=== PATIENT | male | born 1965 | race Caucasian/White ===

== ENCOUNTER → 2016-06-29 17:18 | Outpatient (CLI) | payer MEDICAID ==
[2016-06-29 17:41] LABS: HEMATOCRIT 27.7 % (42.0-54.0); HEMOGLOBIN 9.2 g/dL (13.5-17.5); MCH 28.1 pg (26.0-34.0); MCHC 33.2 g/dL (31.0-37.0); MCV 84.7 fL (80.0-100.0); MEAN PLATELET VOLUME 10.6 fL (7.4-10.4); PLATELET COUNT 139 10x3/uL (130-400); RBC 3.27 10x6/uL (4.20-6.10)
[2016-06-29 18:02] LABS: WBC 1.7 10x3/uL (4.8-10.8)
[2016-06-29 19:04] LABS: LYMPHOCYTES 44 % (15-50); MONOCYTES 6 % (2-11); NEUTROPHILS 48 % (40-80); PLATELET ESTIMATE NORMAL
== END | disposition home or self-care (01) ==
LOC: D.LABREF 17:18
PROVIDERS: Student in an Organized Health Care Education/Training Program
DX: D61.818 Other pancytopenia (principal); B39.3 Disseminated histoplasmosis capsulati

== ENCOUNTER → 2016-10-05 20:17 | Outpatient (CLI) | payer MEDICAID | END | disposition home or self-care (01) | LOC: D.LABREF 20:17 | DX: R53.83 Other fatigue (principal); A31.0 Pulmonary mycobacterial infection ==

== ENCOUNTER → 2016-10-12 14:27 | Outpatient (CLI) | payer MEDICAID | END | disposition home or self-care (01) | LOC: D.RAD 14:27 | DX: R06.00 Dyspnea, unspecified (principal) ==

== ENCOUNTER → 2017-02-21 11:02 | Outpatient (CLI) | payer MEDICAID | END | disposition home or self-care (01) | LOC: D.LABREF 11:02 | PROVIDERS: Student in an Organized Health Care Education/Training Program | DX: B39.3 Disseminated histoplasmosis capsulati (principal) ==

== ENCOUNTER → 2017-03-30 13:45 | Outpatient (CLI) | payer MEDICAID ==
[~2017-03-30 13:45] MED LIST: HYDROCODON-ACE1 EAC7 PO
== END | disposition home or self-care (01) ==
LOC: D.US 13:45
DX: R59.0 Localized enlarged lymph nodes (principal)

== ENCOUNTER 2017-04-05 06:39 | Day surgery (SDC) | payer MEDICAID ==
[2017-04-05 07:22] LABS: BASOPHILS 0.7 % (0-2); EOSINOPHILS 8.3 % (0-7); HEMOGLOBIN 12.9 g/dL (13.5-17.5); LYMPHOCYTES 21.1 % (15-50); MCH 29.7 pg (26.0-34.0); MCHC 34.9 g/dL (31.0-37.0); MCV 85.1 fL (80.0-100.0); MEAN PLATELET VOLUME 8.6 fL (7.4-10.4); MONOCYTES 14.5 % (2-11); NEUTROPHILS 55.4 % (40-80); PLATELET COUNT 122 10x3/uL (130-400); RBC 4.35 10x6/uL (4.20-6.10); WBC 2.9 10x3/uL (4.8-10.8)
[2017-04-05 07:41] LABS: ANION GAP 10.8 mmol/L (8-16); CALCIUM 9.1 mg/dL (8.5-10.1); CARBON DIOXIDE 27.1 mmol/L (21.0-32.0); CREATININE - SERUM 1.3 mg/dL (0.6-1.3); POTASSIUM - SERUM 3.9 mmol/L (3.5-5.1)
[2017-04-05 07:55] VITALS: BP 136/88; BMI 25.7
[2017-04-05] MEDS ORDERED: HYDROCODON-ACE1 EAC7 PO (10:02)
--- NOTE | 2017-04-05 13:02 | OP ---
PATIENT NAME: DOMINGUEZ MCINTYRE MEDICAL RECORD: [id number] :63 LOCATION:D.OPS ADMISSION DATE: SURGEON: LEO HERNANDEZ MD DATE OF OPERATION: 04/05/2017 SURGEON: Leo Hernandez MD PREOPERATIVE DIAGNOSES: 1. Left inguinal adenopathy. 2. Acquired immunodeficiency syndrome. POSTOPERATIVE DIAGNOSES: 1. Left inguinal adenopathy. 2. Acquired immunodeficiency syndrome. PROCEDURE PERFORMED: Excisional biopsy of left inguinal lymph node times 2. ANESTHESIA: Local. COMPLICATIONS: None. SPECIMENS: 1. Left superficial groin cystic mass. 2. Left superficial inguinal lymph node. COMPLICATIONS: None. ESTIMATED BLOOD LOSS: 10 cc. OPERATIVE COURSE: After consent was obtained, the patient was taken to the operating room and placed in the supine position on the operating table. Next, general anesthesia was given via endotracheal intubation after a time-out was taken to confirm the correct patient and procedure. The left groin was prepped and draped in the typical sterile fashion. A 30 cc of local anesthetic was injected. The linear incision was made in the left groin with a 15 blade scalpel and dissection done with electrocautery. Self-retaining retractor was placed. Using a combination of blunt dissection and electrocautery, cystic mass was identified in the left groin. It was circumferentially dissected and sent for permanent pathology. Also, the enlarged lymph node identified. It was again circumferentially dissected. It was passed off the field and sent for permanent pathology per lymph node protocol. The area was then copiously irrigated and suctioned. Careful attention was paid to hemostasis, which was obtained with electrocautery and 3-0 silk suture. The wound was closed in 3 layers. The deep subcutaneous tissue closed with 3-0 Vicryl sutures. Superficial fascia was closed with 3-0 Vicryl suture. The skin was closed with 4-0 Monocryl, Dermabond. At the end of the case, all needle and instrument counts were correct. No complications occurred. The patient was transferred to the recovery room in satisfactory condition. TRANSINT:[id number] Voice Confirmation ID: [id number] DOCUMENT ID: [id number] OPERATIVE REPORT [id number] DOMINGUEZ MCINTYRE LEO HERNANDEZ MD at 1302 CC: [id number] DICTATION DATE: 04/05/17 0903 GROMMET MAN: 04/05/17 1240 [facility] [place] 04/05/17 [facility] [address] [facility] [place] [address]
[2017-04-06 19:12] LABS: AFB SPECIMEN PROCESSING Tissue Grinding (())
[2017-04-07 12:17] LABS: FUNGUS STAIN Final report (())
[2017-05-02 10:20] LABS: FUNGUS MYCOLOGY CULTURE Final report (())
[2017-05-26 12:13] LABS: ACID FAST CULTURE Negative (()); ACID FAST SMEAR Negative (())
== END 2017-04-05 12:15 | disposition home or self-care (01) ==
LOC: D.OPS 06:39 → D.PAN 09:00 → D.OPS 09:00
PROVIDERS: Anesthesiology; Surgery
DX: I88.8 Other nonspecific lymphadenitis (principal); B20 Human immunodeficiency virus [HIV] disease; Z01.812 Encounter for preprocedural laboratory examination

== ENCOUNTER → 2017-05-12 11:36 | Outpatient (CLI) | payer MEDICAID ==
[2017-05-12 13:38] LABS: BASOPHILS 0.7 % (0-2); EOSINOPHILS 9.8 % (0-7); HEMATOCRIT 40.3 % (42.0-54.0); HEMOGLOBIN 13.9 g/dL (13.5-17.5); IMMATURE GRANULOCYTES 0.4 % (0-5); LYMPHOCYTES 21.8 % (15-50); MCH 29.7 pg (26.0-34.0); MCHC 34.5 g/dL (31.0-37.0); MCV 86.1 fL (80.0-100.0); MEAN PLATELET VOLUME 8.7 fL (7.4-10.4); MONOCYTES 15.4 % (2-11); NEUTROPHILS 51.9 % (40-80); RBC 4.68 10x6/uL (4.20-6.10); RDW 13.5 % (11.5-14.5); WBC 2.9 10x3/uL (4.8-10.8)
[2017-05-12 13:46] LABS: ALBUMIN 3.7 g/dL (3.4-5.0); ANION GAP 7.6 mmol/L (8-16); BILIRUBIN - TOTAL 0.25 mg/dL (0.2-1.3); CALCIUM 8.8 mg/dL (8.5-10.1); CARBON DIOXIDE 32.4 mmol/L (21.0-32.0); CREATININE - SERUM 1.3 mg/dL (0.6-1.3); PLATELET COUNT 167 10x3/uL (130-400); PROTEIN - SERUM 8.1 g/dL (6.4-8.2)
== END | disposition home or self-care (01) ==
LOC: D.LABREF 11:36
PROVIDERS: Student in an Organized Health Care Education/Training Program
DX: B39.3 Disseminated histoplasmosis capsulati (principal); Z51.81 Encounter for therapeutic drug level monitoring; Z79.899 Other long term (current) drug therapy

== ENCOUNTER → 2017-12-12 10:39 | Outpatient (CLI) | payer MEDICAID | END | disposition home or self-care (01) | LOC: D.RAD 10:39 | DX: R05 Cough (principal) ==

== ENCOUNTER → 2018-02-13 14:27 | Outpatient (CLI) | payer MEDICAID ==
[2018-02-13 15:59] LABS: BASOPHILS 0.7 % (0-2); EOSINOPHILS 5.5 % (0-7); HEMOGLOBIN 12.6 g/dL (13.5-17.5); IMMATURE GRANULOCYTES 0.3 % (0-5); LYMPHOCYTES 23.5 % (15-50); MCH 29.6 pg (26.0-34.0); MCHC 34.1 g/dL (31.0-37.0); MCV 87.1 fL (80.0-100.0); MEAN PLATELET VOLUME 8.8 fL (7.4-10.4); MONOCYTES 15.3 % (2-11); NEUTROPHILS 54.7 % (40-80); PLATELET COUNT 147 10x3/uL (130-400); RBC 4.25 10x6/uL (4.20-6.10); RDW 13.8 % (11.5-14.5); WBC 3.1 10x3/uL (4.8-10.8)
[2018-02-13 16:22] LABS: ALBUMIN 3.2 g/dL (3.4-5.0); BILIRUBIN - TOTAL 0.17 mg/dL (0.2-1.3); CREATININE - SERUM 1.3 mg/dL (0.6-1.3); POTASSIUM - SERUM 3.8 mmol/L (3.5-5.1); PROTEIN - SERUM 7.1 g/dL (6.4-8.2)
[2018-02-13 16:58] LABS: ANION GAP 14.3 mmol/L (8-16); CARBON DIOXIDE 24.5 mmol/L (21.0-32.0)
== END | disposition home or self-care (01) ==
LOC: D.LABREF 14:27
PROVIDERS: Student in an Organized Health Care Education/Training Program
DX: Z51.81 Encounter for therapeutic drug level monitoring (principal); Z79.899 Other long term (current) drug therapy